=== PATIENT | female | born 1995 | race Caucasian/White ===

== ENCOUNTER 2018-12-09 00:21 | Emergency (ER) | payer SELFPAY ==
[~2018-12-09] VITALS: Ht 160 cm; Wt 51.8 kg
[~2018-12-09 00:21] MED LIST: DOCU-144 PO; POLY17PO6 PO; PSYL575P18 PO
[2018-12-09 00:24] VITALS: BP 152/60; PULSE 99; RESP 22; Ht 160 cm; Wt 51.8 kg
== END 2018-12-09 01:20 | disposition home or self-care (01) ==
LOC: FTE 00:21
DX: K59.00 Constipation, unspecified (principal)
CPT/HCPCS: 99282